=== PATIENT | female | born 1960 | race Caucasian/White ===

== ENCOUNTER 2020-11-12 08:47 | Observation (INO) ==
--- NOTE | 2020-11-12 09:17 | DR.CP ---
HPI Time Seen Time Seen by Provider: 11/12/20 09:14 PCP Primary Care Physician: STEVE HPI Comment HPI Comment: PATIENT IS 60YR OLD FEMALE WITH 7/10 PAIN IN LEFT CHEST RADIATING TO LEFT ARM. Complaint Chief Complaint Doctor Comments: CHEST PAIN, DIZZINESS AND INCREASING SOB TIMES 2 DAYS. Chief Complaint:: PT C/O HAVING CHEST DISCOMFORT SINCE THURSDAY , SO SHE RESTED THE WEEKEND AND WHILE SHE WAS AT WORK TODAY SHE BECAME DIZZY AND THEY CHECKED HER B/P AND IT WAS 180'S SYSTOLIC, PT C/O BEING SOB, ( PT C/O LEFT SIDED CHEST PAIN THAT RADIATES TO HER LEFT ARM INTERMITTANT ".BR COVID-19 Coronavirus risk:travel/contact w/high risk person: No Has patient experienced Coronavirus symptoms: No Reviewed Nurses Notes Review: Yes Source History Provided: Patient Mode of Arrival Mode of Arrival: Ambulatory Timing Onset of Chief Complaint: 11/10/20 Came on: Suddenly Pain: Present Now Duration Duration: Intermittent Duration: Days Location Chest Pain Radiation Location: Left Arm Context Onset: At rest Cardiac Risk Factors: Smoker PE Risk Factors: None History of: None Prehospital Care: None Quality Quality: Sharp Severity Severity: Moderate Modifying Factors Worsens: Exertion Impoves: Rest Associated Signs and Symptoms Associated Signs and Symptoms: Shortness of Breath PMH PMH Past Medical History: Yes Past Medical History: Hypertension Past Medical History Comment: COPD Past Surgical History: Yes Past Surgical History Comment: HERNIA REPAIR , TUBAL Family History History of Family Medical Conditions: No Social History Does patient currently use any type of tobacco product: Yes Have you used tobacco products in the last 12 months: Yes Type of Tobacco Use: Cigarettes Does any household member use tobacco: No Alcohol Use: None Do you use any recreational Drugs:: No Lives With: Family Lives Where: Home Travel Risk Coronavirus risk:travel/contact w/high risk person: No Has patient experienced Coronavirus symptoms: No Infectious screening In the last 2 months have you had wt loss of >10#?: NO Have you had fever, night sweats or hemotysis?: No Have you traveled outside the country in the last 6 months?: No Isolation: Standard ROS Review of Systems Constitutional: See HPI and Weakness; negative Fever and Fatigue Eyes: See HPI and Photophobia; negative Blurred Vision and Diplopia ENTM: No Symptoms Reported and See HPI; negative Nose Discharge and Nose Congestion Respiratoy: See HPI, Moist Cough and Short of Breath Cardiovascular: No Symptoms Reported, See HPI, Chest Pain and Other (ELEVATED BP.); negative Edema and Palpitations Gastrointestinal/Abdominal: No Symptoms Reported and See HPI; negative Abdominal Pain, Diarrhea and Vomiting Genitourinary: No Symptoms Reported and See HPI; negative Dysuria, Frequency and Hematuria Neurological: No Symptoms Reported, See HPI, Headache, Weakness and Dizziness Musculoskeletal: No Symptoms Reported and See HPI; negative Muscle Pain Integumentary: No Symptoms Reported and See HPI; negative Change in Color, Rash and Juandice Hematologic/Lymphatic: No Symptoms Reported and See HPI; negative Easy Bruising and Swollen Glands Endocrine: No Symptoms Reported and See HPI; negative Increased Thirst and Increased Urine Psychiatric: No Symptoms Reported and See HPI All Other Systems: Reviewed and Negative PE Vitals Vitals: Temperature 97.5 F Pulse Rate 84 Respiratory Rate 29 Blood Pressure 148/83 O2 Sat by Pulse Oximetry 98 General Limitations: No Limitations General Appearance: Alert and In No Apparent Distress Head Head Exam: Normal Inspection Eyes Eye exam: Normal Appearance ENT ENT Exam: Normal Exam Chest Chest Inspection: Normal Inspection Respiratory Respiratory Exam: Normal Lung Sounds Bilat Cardiovascular Cardiovascular Exam: Regular Rate and Normal Rhythm Pulse: Normal Edema: Normal Abdominal Exam Abdominal Exam: Normal Inspection, Normal Bowel Sounds and Soft Extremities Extremities Exam: Normal Inspection Back Back Exam: Normal Inspection Neurologic Neurological Exam: Alert and Oriented X3 Psychiatric Psychiatric Exam: Normal Affect and Normal Mood Skin Skin Exam: Warm, Dry, Intact and Normal Color ROR Labs Reviewed Result Diagrams: 11/12/20 09:15 11/12/20 09:15 Laboratory: WBC 9.1 X10^3/uL (3.6-10.0) 11/12/20 09:15 RBC 4.67 X10^6/uL (3.5-5.4) 11/12/20 09:15 Hgb 14.9 g/dL (12.0-16.0) 11/12/20 09:15 Hct 43.9 % (36.0-47.0) 11/12/20 09:15 MCV 94.0 fL (80.0-100.0) 11/12/20 09:15 MCH 32.0 pg (27.0-34.0) 11/12/20 09:15 MCHC 34.0 g/dL (33.0-35.0) 11/12/20 09:15 RDW 14.5 % (11.6-16.5) 11/12/20 09:15 Plt Count 236 X10^3/uL (150.0-450.0) 11/12/20 09:15 Plt Count Comment Adequate (ADEQUATE) 11/12/20 09:15 MPV 9.3 fL (7.4-11.0) 11/12/20 09:15 Neut % (Auto) 70.0 % (42.0-75.0) 11/12/20 09:15 Lymph % (Auto) 19.8 % (21.0-51.0) L 11/12/20 09:15 [place] % (Auto) 8.5 % (0.0-13.0) 11/12/20 09:15 Eos % (Auto) 0.7 % (0.9-2.9) L 11/12/20 09:15 Baso % (Auto) 1.0 % (0.2-1.0) 11/12/20 09:15 Neut # (Auto) 6.4 x10^3/uL (2.2-4.8) H 11/12/20 09:15 Lymph # (Auto) 1.8 X10^3/uL (1.3-2.9) 11/12/20 09:15 [place] # (Auto) 0.8 x10^3/uL (0.3-0.8) 11/12/20 09:15 Eos # (Auto) 0.1 x10^3/uL (0.0-0.2) 11/12/20 09:15 Baso # (Auto) 0.1 X10^3/uL (0.0-0.1) 11/12/20 09:15 Absolute Nucleated RBC 0.1 /100WBC 11/12/20 09:15 Plt Morphology Comment Normal (NORMAL) 11/12/20 09:15 RBC Morphology Normal (NORMAL) 11/12/20 09:15 D-Dimer 0.41 ug/ml (0.0-0.57) 11/12/20 09:15 Sodium 138 mmol/L (136-145) 11/12/20 09:15 Corrected Sodium 138 mmol/L (136-145) 11/12/20 09:15 Potassium 3.8 mmol/L (3.5-5.1) 11/12/20 09:15 Chloride 102 mmol/L (98-107) 11/12/20 09:15 Carbon Dioxide 25.9 mmol/L (21-32) 11/12/20 09:15 BUN 8 mg/dL (7-18) 11/12/20 09:15 Creatinine 0.74 mg/dL (0.55-1.02) 11/12/20 09:15 Est GFR (MDRD) Af Amer > 60 (>60) 11/12/20 09:15 Est GFR (MDRD) Non-Af > 60 (>60) 11/12/20 09:15 Glucose 118 mg/dL (65-99) H 11/12/20 09:15 Calcium 8.8 mg/dL (8.5-10.1) 11/12/20 09:15 Corrected Calcium TNP 11/12/20 09:15 Total Bilirubin 0.50 mg/dL (0.2-1.0) 11/12/20 09:15 AST 22 Units/L (15-37) 11/12/20 09:15 ALT 20 Units/L (12-78) 11/12/20 09:15 Alkaline Phosphatase 77 Units/L (46-116) 11/12/20 09:15 Creatine Kinase 71 Units/L (26-192) 11/12/20 09:15 CK-MB (CK-2) < 1.0 ng/mL (0-4.0) 11/12/20 09:15 CK/CKMB % Calc 1.4 % (<4) 11/12/20 09:15 Troponin I < 0.02 ng/mL (0-1.5) 11/12/20 09:15 Total Protein 7.0 g/dL (6.4-8.2) 11/12/20 09:15 Albumin 3.7 g/dL (3.4-5.0) 11/12/20 09:15 Globulin 3.3 g/dL (2.5-4.5) 11/12/20 09:15 Albumin/Globulin Ratio 1.1 Ratio (1.1-2.1) 11/12/20 09:15 Amylase 30 Units/L (25-115) 11/12/20 09:15 Lipase 155 Units/L (73-393) 11/12/20 09:15 Specimen Type Clean catch urine 11/12/20 10:03 Urine Color Yellow (YELLOW) 11/12/20 10:03 Urine Appearance Clear (CLEAR) 11/12/20 10:03 Urine pH 6.5 (5.0 - 8.0) 11/12/20 10:03 Ur Specific [place] 1.010 (1.000-1.030) 11/12/20 10:03 Urine Protein Negative (NEGATIVE) 11/12/20 10:03 Urine Glucose (UA) Negative (NEGATIVE) 11/12/20 10:03 Urine Ketones Negative (NEGATIVE) 11/12/20 10:03 Urine Occult Blood Negative (NEGATIVE) 11/12/20 10:03 Urine Nitrite Negative (NEGATIVE) 11/12/20 10:03 Urine Bilirubin Negative (NEGATIVE) 11/12/20 10:03 Urine Urobilinogen Normal (NORMAL) 11/12/20 10:03 Ur Leukocyte Esterase Negative (NEGATIVE) 11/12/20 10:03 Opioid Opioid Risk Tool Age (Hunter box if 16-45): No History of Preadolescent Sexual Abuse: No Total: 0 Total Score Risk Category: Low Risk Copyright: Mark SAAB predicting aberrant behaviors Instructions Forms: Precautions for COVID19 Patient Portal Social Distancing
[2020-11-12] MEDS ORDERED: TORADOL 30 MG VIAL IVP ONE (09:27)
[2020-11-12] MEDS ORDERED: ASPIRIN 81 MG CHEWTAB PO ONE (09:28)
[2020-11-12] MEDS ORDERED: PEPCID 20 MG IV PREMIX* 20 MG/50 ML BAG IV ONE ×2 (09:29→09:39)
[2020-11-12 09:34] LABS: BASOPHILS # (AUTO) 0.1 X10^3/uL (0.0-0.1); EOSINOPHILS # (AUTO) 0.1 x10^3/uL (0.0-0.2); EOSINOPHILS % (AUTO) 0.7 % (0.9-2.9); HEMATOCRIT 43.9 % (36.0-47.0); HEMOGLOBIN 14.9 g/dL (12.0-16.0); LYMPHOCYTES # (AUTO) 1.8 X10^3/uL (1.3-2.9); LYMPHOCYTES % (AUTO) 19.8 % (21.0-51.0); MEAN PLATELET VOLUME 9.3 fL (7.4-11.0); MONOCYTES # (AUTO) 0.8 x10^3/uL (0.3-0.8); MONOCYTES % (AUTO) 8.5 % (0.0-13.0); NEUTROPHILS # (AUTO) 6.4 x10^3/uL (2.2-4.8); PLATELET COUNT 236 X10^3/uL (150.0-450.0); RED BLOOD COUNT 4.67 X10^6/uL (3.5-5.4); RED CELL DISTRIBUTION WIDTH 14.5 % (11.6-16.5); WHITE BLOOD COUNT 9.1 X10^3/uL (3.6-10.0)
[2020-11-12] MEDS ORDERED: ASPIRIN 81 MG CHEWTAB ONE ×2 (09:38→10:29)
[2020-11-12] MEDS ORDERED: TORADOL 30 MG VIAL ONE (09:38)
[2020-11-12 09:52] LABS: ALANINE AMINOTRANSFERASE 20 Units/L (12-78); ALBUMIN 3.7 g/dL (3.4-5.0); ALKALINE PHOSPHATASE 77 Units/L (46-116); AMYLASE 30 Units/L (25-115); ASPARTATE AMINO TRANSFERASE 22 Units/L (15-37); BLOOD UREA NITROGEN 8 mg/dL (7-18); CALCIUM 8.8 mg/dL (8.5-10.1); CARBON DIOXIDE 25.9 mmol/L (21-32); CHLORIDE 102 mmol/L (98-107); CKMB % 1.4 % (<4); COR NA(FOR HYPERGLY) 138 mmol/L (136-145); CREATINE KINASE 71 Units/L (26-192); CREATINE KINASE MB < 1.0 ng/mL (0-4.0); CREATININE 0.74 mg/dL (0.55-1.02); LIPASE 155 Units/L (73-393); SODIUM 138 mmol/L (136-145); TROPONIN I < 0.02 ng/mL (0-1.5); eGFR NON BLACK RACES > 60 (>60)
[2020-11-12 10:07] LABS: PLATELET MORPHOLOGY COMMENT NORMAL (NORMAL)
[2020-11-12 10:10] LABS: BILIRUBIN,URINE NEGATIVE (NEGATIVE); BLOOD/HEMOGLOBIN,URINE NEGATIVE (NEGATIVE); GLUCOSE, URINE NEGATIVE (NEGATIVE); KETONES,URINE NEGATIVE (NEGATIVE); LEUKOCYTE ESTERASE ,URINE NEGATIVE (NEGATIVE); NITRITES,URINE NEGATIVE (NEGATIVE); PH,URINE 6.5 (5.0 - 8.0); PROTEIN,URINE NEGATIVE (NEGATIVE); UROBILINOGEN,URINE NORMAL (NORMAL)
--- NOTE | 2020-11-12 10:13 | RAD ---
HISTORYSOBSTUDYCHEST, 1 VIEWCOMPARISONPortable chest December 12, 2019FINDINGSThe trachea is midline. The cardiac silhouette is unremarkable . The lungs are clear without focal infiltrate or effusion. The bony thorax is unremarkable. Note is made of old healed right posterior lateral right rib fractures.IMPRESSIONNo acute cardiopulmonary disease and no significant change compared to December 12, 2019..Electronically signed by: ASHIA MARTINEZ (November 12, 2020 10:10:19)
[2020-11-12 10:14] LABS: APPEARANCE,URINE CLEAR (CLEAR); COLOR,URINE YELLOW (YELLOW)
--- NOTE | 2020-11-12 10:58 | CT ---
HISTORYhtn, dizzy, headacheSTUDYBRAIN W/O CONCOMPARISONNone.TECHNIQUEMultiple axial images of the head were performed from the skullbase to the vertex using standard departmental protocol. Sagittal and coronal reformatted images were performed. Dose reduction techniques including Automated Exposure Control (AEC) and adjustment of mA and kV were utilized.FINDINGSThe lateral ventricles and basilar cisterns are patent.No parenchymal mass or hematoma. Linn-white differentiation appears acutely preserved.No extra-axial collection.The globes are intact.Mild mucosal thickening in the ethmoid air cells.The calvarium is intact.IMPRESSIONNo acute intracranial abnormality.Electronically signed by: Rory Shelton (November 12, 2020 10:54:35)
[2020-11-12] MEDS ORDERED: NITROSTAT SL PRN (13:39)
[2020-11-12 14:43] LABS: CKMB % 1.4 % (<4); CREATINE KINASE 73 Units/L (26-192); TROPONIN I < 0.02 ng/mL (0-1.5)
[2020-11-12] MEDS: PROTONIX INJ 40 MG VIAL IVP SCH (15:12)
[2020-11-12] MEDS ORDERED: MORPHINE SULFATE INJ 2 MG INJ IVP PRN (15:16)
[2020-11-12 15:56] VITALS: BMI 26.6
[2020-11-12] MEDS: NICOTINE PATCH TD SCH (17:23)
[2020-11-12] MEDS ORDERED: TYLENOL 325 MG TAB PO PRN (17:27)
[2020-11-12] MEDS ORDERED: MELATONIN PO SCH (21:00)
[2020-11-12 21:05] LABS: CKMB % 1.6 % (<4); CREATINE KINASE 61 Units/L (26-192); CREATINE KINASE MB < 1.0 ng/mL (0-4.0); TROPONIN I < 0.02 ng/mL (0-1.5)
[2020-11-13 06:10] LABS: BASOPHILS # (AUTO) 0.1 X10^3/uL (0.0-0.1); BASOPHILS % (AUTO) 1.2 % (0.2-1.0); EOSINOPHILS # (AUTO) 0.3 x10^3/uL (0.0-0.2); EOSINOPHILS % (AUTO) 4.9 % (0.9-2.9); HEMATOCRIT 40.9 % (36.0-47.0); HEMOGLOBIN 13.8 g/dL (12.0-16.0); LYMPHOCYTES # (AUTO) 2.1 X10^3/uL (1.3-2.9); LYMPHOCYTES % (AUTO) 33.2 % (21.0-51.0); MEAN CORPUSCULAR HEMOGLOBIN 31.5 pg (27.0-34.0); MEAN CORPUSCULAR HGB CONC 33.7 g/dL (33.0-35.0); MEAN CORPUSCULAR VOLUME 93.6 fL (80.0-100.0); MEAN PLATELET VOLUME 9.4 fL (7.4-11.0); MONOCYTES # (AUTO) 0.6 x10^3/uL (0.3-0.8); MONOCYTES % (AUTO) 9.2 % (0.0-13.0); NEUTROPHILS # (AUTO) 3.3 x10^3/uL (2.2-4.8); NEUTROPHILS % (AUTO) 51.5 % (42.0-75.0); PLATELET COUNT 215 X10^3/uL (150.0-450.0); RED BLOOD COUNT 4.36 X10^6/uL (3.5-5.4); RED CELL DISTRIBUTION WIDTH 14.5 % (11.6-16.5); WHITE BLOOD COUNT 6.5 X10^3/uL (3.6-10.0)
[2020-11-13 06:22] LABS: ALANINE AMINOTRANSFERASE 17 Units/L (12-78); ALBUMIN 2.9 g/dL (3.4-5.0); ALKALINE PHOSPHATASE 61 Units/L (46-116); ASPARTATE AMINO TRANSFERASE 18 Units/L (15-37); BLOOD UREA NITROGEN 14 mg/dL (7-18); CALCIUM 8.3 mg/dL (8.5-10.1); CARBON DIOXIDE 26.5 mmol/L (21-32); CHLORIDE 105 mmol/L (98-107); CHOL/HDL RATIO 2.6 (0.0-5.0); CHOLESTEROL 161 mg/dL (0-200); COR CA(FOR HYPOALB) 9.2 mg/dL (8.5-10.1); CREATININE 0.72 mg/dL (0.55-1.02); HDL CHOLESTEROL 61 mg/dL (40-60); MAGNESIUM 1.9 mg/dL (1.7-2.9); SODIUM 140 mmol/L (136-145); TOTAL PROTEIN 5.9 g/dL (6.4-8.2); TRIGLYCERIDES 46 mg/dL (0-150); eGFR NON BLACK RACES > 60 (>60)
[2020-11-13 06:41] LABS: GIANT PLATELET RARE; PLATELET MORPHOLOGY COMMENT ABNORMAL (NORMAL)
--- NOTE | 2020-11-13 08:59 | DR.SSS ---
SHORT STAY SUMMARY Admission Date Date of Admission: 11/12/20 Discharge Date Discharge Date: 11/13/20 Admission Diagnoses Admission Diagnoses: Chest pain Discharge Diagnoses Discharge Diagnoses: Chest pain Anxiety Chief Complaint Chief Complaint: Chest pain Anxiety History of Present Illness History of Present Illness: Pt is a 60 year old with no past medical history presenting after going to work this morning and feeling some chest tightness. She then felt short of breath and weak and went to ER. She does admit to being under a lot of stress and has anxiety. In the ED she was found to have elevated blood pressure. Past Medical History Past Medical History: Hypertension Past Surgical History Surgical History: Abdominal Surgery, SIX PACK PACKER Surgery and Tonsillectomy Allergies Allergies Allergy/AdvReac Type Severity Reaction Status Date / Time No Known Drug Allergies Allergy Verified 11/12/20 08:49 Medications Home Medications: No Known Drug Allergies Allergy (Verified 11/12/20 08:49) CONTINUE taking the following medications NK 11/12/20 [History] Family History Family Medical History: Coronary Artery Disease and Hypertension Social History Does patient currently use any type of tobacco product: Yes Have you used tobacco products in the last 12 months: Yes Type of Tobacco Use: Cigarettes How many years tobacco product used: 43 Does any household member use tobacco: No Alcohol Use: Rarely Drug Use: None Review of Systems Constitutional: Weakness; denies Fever and Chills Eyes: No Symptoms Reported ENT: No Symptoms Reported Respiratory: Shortness of Breath Cardiovascular: Chest Pain; denies Palpitations and Edema Gastrointestinal: No Symptoms Reported Genitourinary: No Symptoms Reported Musculoskeletal: No Symptoms Reported Skin: No Symptoms Reported Neurological: No Symptoms Reported Physical Exam Vital Signs: Last Vital Signs Temp 97.7 F 11/13/20 04:00 Pulse 77 11/13/20 04:00 Resp 14 11/13/20 04:00 BP 129/63 11/13/20 04:00 Pulse Ox 95 11/13/20 04:00 Oriented: Normal Eyes: Normal Ear: Normal Nose: Normal Throat: Normal Respiratory: Clear Throughout Cardiovascular: Normal : Normal Auscultation: Bowel Sounds: Normal Palpation: Normal Tenderness: Normal Skin: Normal Musculoskeletal: Normal Psychiatric: Normal Mood Description: Anxious Affect: Normal Speech Pattern: Clear Labs Labs: Laboratory Last Values WBC 6.5 X10^3/uL (3.6-10.0) 11/13/20 05:33 RBC 4.36 X10^6/uL (3.5-5.4) 11/13/20 05:33 Hgb 13.8 g/dL (12.0-16.0) 11/13/20 05:33 Hct 40.9 % (36.0-47.0) 11/13/20 05:33 MCV 93.6 fL (80.0-100.0) 11/13/20 05:33 MCH 31.5 pg (27.0-34.0) 11/13/20 05:33 MCHC 33.7 g/dL (33.0-35.0) 11/13/20 05:33 RDW 14.5 % (11.6-16.5) 11/13/20 05:33 Plt Count 215 X10^3/uL (150.0-450.0) 11/13/20 05:33 Plt Count Comment Adequate (ADEQUATE) 11/13/20 05:33 MPV 9.4 fL (7.4-11.0) 11/13/20 05:33 Neut % (Auto) 51.5 % (42.0-75.0) 11/13/20 05:33 Lymph % (Auto) 33.2 % (21.0-51.0) 11/13/20 05:33 [place] % (Auto) 9.2 % (0.0-13.0) 11/13/20 05:33 Eos % (Auto) 4.9 % (0.9-2.9) H 11/13/20 05:33 Baso % (Auto) 1.2 % (0.2-1.0) H 11/13/20 05:33 Neut # (Auto) 3.3 x10^3/uL (2.2-4.8) 11/13/20 05:33 Lymph # (Auto) 2.1 X10^3/uL (1.3-2.9) 11/13/20 05:33 [place] # (Auto) 0.6 x10^3/uL (0.3-0.8) 11/13/20 05:33 Eos # (Auto) 0.3 x10^3/uL (0.0-0.2) H 11/13/20 05:33 Baso # (Auto) 0.1 X10^3/uL (0.0-0.1) 11/13/20 05:33 Absolute Nucleated RBC 0.1 /100WBC 11/13/20 05:33 Giant Platelets Rare 11/13/20 05:33 Plt Morphology Comment Abnormal (NORMAL) A 11/13/20 05:33 RBC Morphology Normal (NORMAL) 11/13/20 05:33 D-Dimer 0.41 ug/ml (0.0-0.57) 11/12/20 09:15 Sodium 140 mmol/L (136-145) 11/13/20 05:33 Corrected Sodium TNP 11/13/20 05:33 Potassium 3.7 mmol/L (3.5-5.1) 11/13/20 05:33 Chloride 105 mmol/L (98-107) 11/13/20 05:33 Carbon Dioxide 26.5 mmol/L (21-32) 11/13/20 05:33 BUN 14 mg/dL (7-18) 11/13/20 05:33 Creatinine 0.72 mg/dL (0.55-1.02) 11/13/20 05:33 Est GFR (MDRD) Af Amer > 60 (>60) 11/13/20 05:33 Est GFR (MDRD) Non-Af > 60 (>60) 11/13/20 05:33 Glucose 90 mg/dL (65-99) 11/13/20 05:33 Calcium 8.3 mg/dL (8.5-10.1) L 11/13/20 05:33 Corrected Calcium 9.2 mg/dL (8.5-10.1) 11/13/20 05:33 Magnesium 1.9 mg/dL (1.7-2.9) 11/13/20 05:33 Total Bilirubin 0.40 mg/dL (0.2-1.0) 11/13/20 05:33 AST 18 Units/L (15-37) 11/13/20 05:33 ALT 17 Units/L (12-78) 11/13/20 05:33 Alkaline Phosphatase 61 Units/L (46-116) 11/13/20 05:33 Creatine Kinase 61 Units/L (26-192) 11/12/20 20:30 CK-MB (CK-2) < 1.0 ng/mL (0-4.0) 11/12/20 20:30 CK/CKMB % Calc 1.6 % (<4) 11/12/20 20:30 Troponin I < 0.02 ng/mL (0-1.5) 11/12/20 20:30 Total Protein 5.9 g/dL (6.4-8.2) L 11/13/20 05:33 Albumin 2.9 g/dL (3.4-5.0) L 11/13/20 05:33 Globulin 3.0 g/dL (2.5-4.5) 11/13/20 05:33 Albumin/Globulin Ratio 1.0 Ratio (1.1-2.1) L 11/13/20 05:33 Triglycerides 46 mg/dL (0-150) 11/13/20 05:33 Cholesterol 161 mg/dL (0-200) 11/13/20 05:33 LDL Cholesterol, Calc 91 mg/dL (0-100) 11/13/20 05:33 HDL Cholesterol 61 mg/dL (40-60) H 11/13/20 05:33 Cholesterol/HDL Ratio 2.6 (0.0-5.0) 11/13/20 05:33 Amylase 30 Units/L (25-115) 11/12/20 09:15 Lipase 155 Units/L (73-393) 11/12/20 09:15 Specimen Type Clean catch urine 11/12/20 10:03 Urine Color Yellow (YELLOW) 11/12/20 10:03 Urine Appearance Clear (CLEAR) 11/12/20 10:03 Urine pH 6.5 (5.0 - 8.0) 11/12/20 10:03 Ur Specific [place] 1.010 (1.000-1.030) 11/12/20 10:03 Urine Protein Negative (NEGATIVE) 11/12/20 10:03 Urine Glucose (UA) Negative (NEGATIVE) 11/12/20 10:03 Urine Ketones Negative (NEGATIVE) 11/12/20 10:03 Urine Occult Blood Negative (NEGATIVE) 11/12/20 10:03 Urine Nitrite Negative (NEGATIVE) 11/12/20 10:03 Urine Bilirubin Negative (NEGATIVE) 11/12/20 10:03 Urine Urobilinogen Normal (NORMAL) 11/12/20 10:03 Ur Leukocyte Esterase Negative (NEGATIVE) 11/12/20 10:03 SARS CoV-2 RNA Rapid DARIO Negative (NEGATIVE) 11/12/20 10:56 Hospital Course Hospital Course: Patient was admitted for chest pain rule out. She was given ASA and IM toradol for pain that normalized her elevated blood pressure. Labs/imaging:Wbc 6.5, Hgb 13.8, Plt 215, Na 140, K 3.7, Creatinien 0.72, Glucose 90, D-dimer 0.41, COVID-19 negative, Troponin negative x3, EKG NSR, CT head:no acute findings, CXR:No acute cardiopulmonary findings. Pt was observed overnight with blood pressure staying wnl. No further episodes of chest pain. Cardiac enzymes trended negative. Likely musculoskeletal pain or anxiety. Discussed with patient would benefit from outpatient treatment of anxiety and recommend stress test. Pt verbalized understanding. Pt discharged in stable condition, instructed to follow up with pcp in 3-5 days. Discharge Medications Discharge Medications: Home Medication List NK 11/12/20 [History] Prescriptions: Discharge Disposition Discharge Disposition: Home
[2020-11-13] MEDS ORDERED: ASPIRIN PO SCH (09:00)
[2020-11-13] MEDS: PROTONIX INJ 40 MG VIAL IVP SCH (09:01)
[2020-11-13] MEDS: NICOTINE PATCH TD SCH (09:02)
[2020-11-13 09:41] VITALS: BP 139/73
== END 2020-11-13 11:00 | disposition home or self-care (01) ==
LOC: ER 08:47 → MED/SURG 08:47
PROVIDERS: ADMIT Family Medicine; ATTEND Family Medicine
DX: R06.02 Shortness of breath; F41.8 Other specified anxiety disorders; Z20.822 Contact with and (suspected) exposure to COVID-19; R94.31 Abnormal electrocardiogram [ECG] [EKG]; R07.89 Other chest pain; J44.9 Chronic obstructive pulmonary disease, unspecified; I10 Essential (primary) hypertension; Z72.0 Tobacco use; R42 Dizziness and giddiness